=== PATIENT | female | born 1955 | race Caucasian/White ===

== ENCOUNTER 2018-09-13 10:03 | Outpatient (REF) | payer BC, SELFPAY ==
[2018-09-13 13:47] LABS: ALT 20 U/L (12-78); Anion Gap 7.6 mmol/L (3-11); BUN 17 mg/dL (7-18); CO2 29.4 mmol/L (21.0-32.0); CREATININE 0.68 mg/dL (0.55-1.02); Calcium 8.8 mg/dL (8.5-10.1); Chloride 105 mmol/L (98-107); Cholesterol 217 mg/dL (50-200); Glucose 89 mg/dL (70-100); HDL Cholesterol 52 mg/dL (40-60); LDL CHOLESTEROL 151 mg/dL (<100); Potassium 3.8 mmol/L (3.5-5.1); Sodium 142 mmol/L (136-145); Triglyceride 53 mg/dL (30-150)
== END 2018-09-13 10:23 ==
LOC: NCHCN 10:03
PROVIDERS: PCP Family Medicine; Visit Provider Family Medicine
DX: R73.03 Prediabetes (principal)
CPT/HCPCS: 80048; 80061; 83721; 83036; 84460

== ENCOUNTER 2018-10-11 01:02 | Outpatient (CLI) | payer BC, SELFPAY ==
--- NOTE | 2018-10-11 07:45 | DI.MAMMO_ITS ---
SYMPTOM/DIAGNOSIS: SCREENING, Z12.31 MAMMOGRAMS: Mammograms were interpreted according to the usual protocol including computer analysis with CAD system, tomosynthesis and C view imaging. Comparison is made with prior examinations. Breast density, Category B. No suspicious masses or microcalcifications are seen. There is no definite evidence of malignancy. IMPRESSION: Negative mammogram. Routine screening is recommended. Category 1. MQSA ASSESSMENT OF FINDINGS: Negative. Category 1. Patient will receive a letter notifying them of these results. BI-RADS category B. There are scattered areas of fibroglandular density.
== END 2018-10-11 01:22 ==
PROVIDERS: PCP Family Medicine; Visit Provider Family Medicine
DX: Z12.31 Encounter for screening mammogram for malignant neoplasm of breast (principal)
CPT/HCPCS: 77063; 77067

== ENCOUNTER 2019-09-26 13:45 | Outpatient (REF) | payer BC, SELFPAY ==
[2019-09-26 14:25] LABS: Glucose 93 mg/dL (74-106)
== END 2019-09-26 14:05 ==
LOC: NCHCN 13:45
PROVIDERS: PCP Family Medicine; Visit Provider Family Medicine
DX: R73.03 Prediabetes (principal)
CPT/HCPCS: 82947; 83036

== ENCOUNTER 2019-11-07 00:18 | Outpatient (CLI) | payer BC, SELFPAY ==
--- NOTE | 2019-11-07 | DI.MAMMO_ITS ---
EXAM: MG MAMMO SCREENING CLINICAL HISTORY: SCREENING, Z12.31 TECHNIQUE: Bilateral full field digital CC and MLO mammographic images were obtained with 3D tomosyn thesis and utilizing computer aided detection (CAD). COMPARISON: Available for comparison. FINDINGS: Masses/Architectural Distortion: None seen. Microcalcifications: No suspicious pleomorphic-type are seen. Skin Thickening/Nipple Retraction: None. IMPRESSION: 1. No significant interval change with no specific features of malignancy noted. 2. Unless there is more urgent need, screening mammography is recommended, as per [place] [employer] guidelines. BI-RADS Cat 1 - Negative Breast Density - Category B - Scattered areas of fibroglandular density A negative radiographic report should not delay biopsy if a dominant or clinically suspicious mass is present. Up to ten percent of cancers are not identified on mammography. A negative report may reinforce clinical impression. Adenosis and dense breasts may obscure an underlying neoplasm. False positive reports average 6 to 10%. Patient will receive a letter notifying them of these results.
== END 2019-11-07 00:38 ==
PROVIDERS: PCP Family Medicine; Visit Provider Family Medicine
DX: Z12.31 Encounter for screening mammogram for malignant neoplasm of breast (principal)
CPT/HCPCS: 77063; 77067

== ENCOUNTER 2020-06-12 12:00 | Outpatient (REF) | payer BC, SELFPAY ==
--- NOTE | 2020-06-12 11:25 | SKI_PTH ---
PATIENT: Irlanda Arias LOC: [facility] U#:[id number] AGE/SX: 64/F ROOM: RE06/12/[address]: Karen Albrecht : 1955 BED: DIS: 06/12/2020 SPEC #: [id number] RECD: 06/12/20 12:39 STATUS: PAMELA REQ #: [id number] RONN: 06/12/20 11:[address]: Karen Albrecht DEPT: Surgical Specimen RECD BY: Ana Whelan ENTERED: 06/12/20 12:40 SP TYPE: MAXI LAU DR: Sandra Vázquez Tissues: 1 - SKIN BIOPSY(SHAVE/PUNCH) Procedures: SKIN LEVEL 4 Comments: [id number]
== END 2020-06-12 12:20 ==
LOC: LBN 12:00
PROVIDERS: PCP Family Medicine; Visit Provider Surgery
DX: L82.0 Inflamed seborrheic keratosis (principal)
CPT/HCPCS: 88305

== ENCOUNTER 2020-06-17 07:57 | Day surgery (SDC) | payer BC, SELFPAY ==
--- NOTE | 2020-06-17 06:44 | W.COLOREPORT ---
Date of service: 06/17/20 Time of Service: : Colonoscopy Report Date of procedure: 06/17/20 Pre-op diagnosis general: Family history and screening Post-op diagnosis procedure note: same Procedure: Colonoscopy Surgeon: Aretha Whitt Anesthesia proc note operative: other (General/ASA 2/Sheron Aguila, JOSE LUIS) Estimated blood loss (mL): 0 Pathology: none sent Complications: None Disposition: same day Indications: The patient is here for Colonoscopy pre-op. Her last screening was in 2013, which was unremarkable. She reports a family history of colon cancer in her paternal uncle (30s) and maternal aunt (70s). She has not had any bowel habit changes. -Discussed colonoscopy bowel prep as well as the procedure. Discussed possible complications of the procedure to include bleeding, pain, perforation, missed small lesion/polyp, sore throat, aspiration and adverse reaction to the medications. Questions were answered to patient?s satisfaction. No guarantees were implied or given Prep: Miralax/Dulcolax Procedure Start Time: Procedure End Time: :45 Retraction Time: 8 minutes Findings: Normal colon Procedure Description: After informed consent was obtained the patient was taken to the procedure room and placed in a left decubitous position. Monitors were applied and a time out was done. The patients name, date of , procedure, allergies to medications and metal in their body was reviewed. The patient was then sedated. Once sedated and comfortable a rectal exam was done. External exam was normal. Internal exam revealed a normal sphincter tone and no palpable masses. The scope was then introduced and retro-flexed. No internal hemorrhoids were identified. The scope was then advanced to the cecum with some difficulty due to a tortuous colon. The ileocecal valve and appendiceal orifice were identified. The prep was good. The scope was then slowly retracted over 8 minutes back into the rectum. There were no polyps and no diverticula. The scope was removed and the patient was woken up and taken back to Same day surgery in stable condition. The patient tolerated the procedure well and there were no immediate complications. Follow up: The patient should follow up in 5 years unless they develop changes in bowel habits or other new gastrointestinal complaints.
--- NOTE | 2020-06-17 06:45 | W.PM.DSUDISC ---
Discharge Plan Disposition Patient Disposition: HOME Condition: Good Discharge Details Reason For Visit: Colonoscopy Attending Provider: Aretha Whitt Primary Care Provider: Sandra Vázquez Home Meds and New Rx's Prescriptions: Continued sertraline [Zoloft] 50 MG tablet 50 mg PO DAILY Qty: 1 RF: 0 cholecalciferol (vitamin D3) 1,000 UNIT tablet 1,000 unit PO DAILY RF: 0 krill oil 500 mg capsule PO RF: 0 ibuprofen 200 MG tablet 400 mg PO DAILY PRNRF: 0 calcium citrate-vitamin D3 1 EACH tablet 1 tab PO DAILY RF: 0 Discontinued polyethylene glycol 3350 17 gram/dose powder 238 g PO ONCE Qty: 238 RF: 0 bisacodyl [Dulcolax (bisacodyl)] 5 mg tablet,delayed release (DR/EC) 5 mg PO ONCE Qty: 4 RF: 0 No Action Elderberry 200 mg Capsule 200 mg PO RF: 0 Discharge Instructions Additional Instructions: Findings: Normal colonoscopy Follow up: 5 years due to your family history Please call if you develop: fevers >101.5 Nausea or Vomiting Abdominal pain that is not transient DAY SURGERY UNIT POST ENDOSCOPY INSTRUCTIONS 1. Because there will be medication in your system for the next 24 hours, you may feel a little sleepy. Your coordination will be affected. Therefore: a. Do not drive or operate dangerous equipment for 24 hours. b. Do not drink alcohol beverages for 24 hours (not even beer). c. Plan to go home and rest for the day. 2. Generally there are no restrictions on your activity after a day or so has gone by, but you may feel a bit fatigued for a few days. 3 After you arrive home you may have a light meal and return to a normal diet as you can tolerate it without feeling sick to your stomach. 4. After surgery, you may feel pain or discomfort. This should be only transient, but if it persists please contact your doctor. 5. If there are any questions regarding the findings of your procedure, please feel free to contact your doctor. 6. If you are unable to contact your doctor with a problem, contact the hospital at [phone]. 7. Continue all your regular medications unless directed otherwise. I understand the above instructions and have no questions. Signature of Patient or Responsible Adult Escort Date/Time Name of Responsible Adult Escort Signature of Nurse Date/Time Activity:: Activity as Tolerated Diet:: As Tolerated Discharge Orders Discharge Orders: Discharge Order (Routine); Ordered 06/17/20 Ordered By: Aretha Whitt
[2020-06-17 08:14] VITALS: BP 107/75; PULSE 82; RESP 16; TEMP 36; O2SAT 82
[2020-06-17] MEDS: Lactated Ringers 1,000 ML 80 ML IV (08:49)
[2020-06-17 10:32] VITALS: BP 107/56; PULSE 62; RESP 16; TEMP 36.2; O2SAT 99
== END 2020-06-17 10:55 | disposition home or self-care (01) ==
LOC: SUR 07:57
PROVIDERS: PCP Family Medicine; Visit Provider Surgery
PROC: 0DJD8ZZ Inspection of Lower Intestinal Tract, Via Natural or Artificial Opening Endoscopic (ICD-10-PCS; CPT 45378; principal; 2020-06-17 09:15)
DX: Z12.11 Encounter for screening for malignant neoplasm of colon (principal); Z80.0 Family history of malignant neoplasm of digestive organs; R73.03 Prediabetes
CPT/HCPCS: 45378; J2001

== ENCOUNTER 2020-10-02 09:11 | Outpatient (REF) | payer BC, SELFPAY ==
[2020-10-02 13:54] LABS: Glucose 92 mg/dL (74-106)
[2020-10-02 14:06] LABS: Hemoglobin A1C 5.7 % (<5.7)
== END 2020-10-02 09:12 | disposition home or self-care (01) ==
LOC: NCHCN 09:11
PROVIDERS: PCP Family Medicine; Visit Provider Family Medicine
DX: R73.03 Prediabetes (principal); Z80.0 Family history of malignant neoplasm of digestive organs
CPT/HCPCS: 82947; 83036

== ENCOUNTER 2021-01-22 02:31 | Outpatient (CLI) | payer MEDICARE, OTHER, SELFPAY ==
--- NOTE | 2021-01-22 | DI.MAMMO_ITS ---
Exam(s) MAMMO SCREENING EXAM: MAMMO SCREENING CLINICAL HISTORY: SCREENING, Z12.31. TECHNIQUE: Bilateral full field digital CC and MLO mammographic images were obtained with 3D tomosyn thesis and utilizing computer aided detection (CAD). COMPARISON: Prior mammograms dating back to 2011, the most recent being October 2019. FINDINGS: Asymmetric density anteriorly in the left breast posteriorly in the right breast, somewhat more promi nent than previous. Spot compression views recommended. No malignant-appearing microcalcification groups in either breast. There is no significant architectural distortion nor skin thickening-retraction. IMPRESSION: Asymmetric densities bilateral. Bilateral spot 3D views recommended. Possibly also breast ultrasoun d. BI-RADS Category 0 - Assessment Incomplete: Need additional imaging evaluation Breast Density - Category C - Heterogeneously dense Breast density Category C or D implies that the patient has dense breast tissue. Dense breast tissue can make it harder to find cancer on a mammogram. Dense breast tissue is also associated with an incr eased risk of breast cancer. This information about the result of the mammogram report was provided to the patient to raise their awareness. Use this report when you speak with the patient about their risks for breast cancer, which includes their family history. At that time, you may recommend additional screening tests (Ultrasoun d or MRI) as these tests may add significant information. A negative radiographic report should not delay biopsy if a dominant or clinically suspicious mass is present. Up to ten percent of cancers are not identified on mammography. A negative report may reinforce clinical impression. Adenosis and dense breasts may obscure an underlying neoplasm. False positive reports average 6 to 10%. Patient will receive a letter notifying them of these results.
--- NOTE | 2021-01-22 08:00 | DI.DEXA_ITS ---
Exam(s) XR DEXA BONE DENSITY W/WO PA EXAM: XR DEXA BONE DENSITY W/WO PA CLINICAL HISTORY: SCREENING FOR OSTEOPOROSIS, Z13.820 TECHNIQUE: Routine DEXA evaluation of the lumbar spine, hip, or forearm. COMPARISON: Prior DEXA scan 2010 FINDINGS: Performed on a GlucoTec unit. Lateral image: No compression fracture evident. Lumbar Spine total T-score: -1.5. Prior 2011 reading was -1.0 Hip total T-score:-1.6. Prior 2011 reading was -1.1 Independent reading at the femoral neck yields a T-score of -1.8 Forearm total T-score: -2.0 IMPRESSION: Bone mineral density measures in the osteopenia range. Fracture risk is moderate. Note: Any spine fracture indicates 5x risk for subsequent spine fracture and 2x risk for subsequent h ip fracture. World Health Organization criteria for BMD interpretation classify patients: Normal...... T- Score at or above -1.0 Osteopenic... T- Score between -1.0 and -2.5 Osteoporosis... T-Score at or below -2.5
== END 2021-01-22 02:51 ==
PROVIDERS: PCP Family Medicine; Visit Provider Family Medicine
DX: M85.88 Other specified disorders of bone density and structure, other site (principal); Z78.0 Asymptomatic menopausal state; Z12.31 Encounter for screening mammogram for malignant neoplasm of breast; R92.8 Other abnormal and inconclusive findings on diagnostic imaging of breast
CPT/HCPCS: 77063; 77067; 77080

== ENCOUNTER 2021-02-07 02:01 | Outpatient (CLI) | payer MEDICARE, OTHER, SELFPAY ==
--- NOTE | 2021-02-07 | DI.US_ITS ---
Exam(s) US BREAST RT LIMITED US BREAST LT LIMITED MG MAMMO SCREEN CALL BACK BI EXAM: MG MAMMO SCREEN CALL BACK BI and bilateral breast U/S limited CLINICAL HISTORY: F/U MAMMO, R92.8, ASYMMETRIC DENSITY ANTERIORLY LT BREAST, POSTERIORLY RT. TECHNIQUE: Craniocaudal and mediolateral oblique Full Field Digital Mammography views of the bilater al breast with Computer Aided Diagnosis followed by Tomosynthesis and bilateral breast ultrasound. COMPARISON: Comparison is made with prior examinations. FINDINGS: Mammography/Tomosynthesis: Masses/Architectural Distortion: No persistent asymmetric density is seen in the retroareolar region of the left breast on the additional views. There is persistent asymmetric breast tissue in the post erior right breast on the additional views, but no mass or areas of architectural distortion are seen . Microcalcifictions: No suspicious pleomorphic-type are seen. Skin Thickening/Nipple Retraction: None. Bilateral breast US: Echotexture: Normal appearance of the glandular tissue. There does appear to be dense breast tissue in the retroareolar region of the left breast and the upper half of the right breast sonographically. Shadowing: No suspicious foci. Cyst: None. Solid lesions: None seen. Ductal dilation: None. IMPRESSION: 1. No definite evidence for malignancy is noted. 2. A follow-up right mammogram is requested in 3 months for re-evaluation. 3. The findings were discussed with the patient on the date of the examination. BI-RADS Category 3 - Probably Benign Finding: Recommend follow-up imaging in 3 months Breast Density - Category C - Heterogeneously dense Breast density Category C or D implies that the patient has dense breast tissue. Dense breast tissue can make it harder to find cancer on a mammogram. Dense breast tissue is also associated with an incr eased risk of breast cancer. This information about the result of the mammogram report was provided to the patient to raise their awareness. Use this report when you speak with the patient about their risks for breast cancer, which includes their family history. At that time, you may recommend additional screening tests (Ultrasoun d or MRI) as these tests may add significant information. A negative radiographic report should not delay biopsy if a dominant or clinically suspicious mass is present. Up to ten percent of cancers are not identified on mammography. A negative report may reinforce clinical impression. Adenosis and dense breasts may obscure an underlying neoplasm. False positive reports average 6 to 10%. Patient will receive a letter notifying them of these results.
== END 2021-02-07 02:21 ==
PROVIDERS: PCP Family Medicine; Visit Provider Family Medicine
DX: Z12.31 Encounter for screening mammogram for malignant neoplasm of breast (principal); R92.8 Other abnormal and inconclusive findings on diagnostic imaging of breast; N64.59 Other signs and symptoms in breast
CPT/HCPCS: 76642; 77063; 77067

== ENCOUNTER 2021-05-21 01:31 | Outpatient (CLI) | payer MEDICARE, OTHER, SELFPAY ==
--- NOTE | 2021-05-21 | DI.MAMMO_ITS ---
Exam(s) MG MAMMO DIAGNOSTIC UNI US BREAST RT COMPLETE EXAM: MG MAMMO DIAGNOSTIC UNI-RIGHT CLINICAL HISTORY: DIAGNOSTIC, F.U ABNL MAMMO,3 MONTH FOLLOW UP,R92.8. TECHNIQUE: Unilateral spot mammographic images obtained with 3D tomosynthesisand utilizing computer aided detection (CAD). . Complete right breast Ultrasound was also performed, including all 4 quadrants, the retroareolar fang on, and the ipsilateral axilla. COMPARISON: Prior mammograms were reviewed. This additional imaging was performed due to findings described on the recent screening mammogram of 01/22/2021. Mammograms prior to that they reviewed a s were the diagnostic mammograms of 02/07/2021. FINDINGS: The asymmetric tissue posteriorly in the right breast appears unchangedand 3D spot imaging renders th is area less concerning. Ultrasound performed today reveals no evidence of solid or significant cystic lesions in all 4 quadra nts. Dense tissue in the retroareolar region is noted, as seen on the mammogram.. No significant ip silateral right axillary adenopathy. IMPRESSION: No radiographic evidence of malignancy in the right breast. No ultrasound evidence of malignancy in the right breast. Appropriate follow-up is to keep this patient on her yearly mammogram schedule, this implying that he r next bilateral mammogram would be in December 2021, with earlier imaging if a self detected breast shukla e is noted.. The patient was informed of these findings and recommendations prior to leaving the department today. BI-RADS Category 2 - Benign Findings Breast Density - Category B - Scattered areas of fibroglandular density Breast density Category C or D implies that the patient has dense breast tissue. Dense breast tissue can make it harder to find cancer on a mammogram. Dense breast tissue is also associated with an incr eased risk of breast cancer. This information about the result of the mammogram report was provided to the patient to raise their awareness. Use this report when you speak with the patient about their risks for breast cancer, which includes their family history. At that time, you may recommend additional screening tests (Ultrasoun d or MRI) as these tests may add significant information. A negative radiographic report should not delay biopsy if a dominant or clinically suspicious mass is present. Up to ten percent of cancers are not identified on mammography. A negative report may reinforce clinical impression. Adenosis and dense breasts may obscure an underlying neoplasm. False positive reports average 6 to 10%. Patient will receive a letter notifying them of these results.
== END 2021-05-21 01:51 ==
PROVIDERS: PCP Family Medicine; Visit Provider Family Medicine
DX: Z12.31 Encounter for screening mammogram for malignant neoplasm of breast (principal); R92.8 Other abnormal and inconclusive findings on diagnostic imaging of breast; N64.59 Other signs and symptoms in breast
CPT/HCPCS: 76642; 77061; 77065; G0279

== ENCOUNTER 2021-10-08 15:22 | Outpatient (REF) | payer MEDICARE, OTHER, SELFPAY ==
[2021-10-08 16:59] LABS: Hemoglobin A1C 5.9 % (<5.7)
[2021-10-08 17:01] LABS: Calculated LDL 170 mg/dL (<100); Cholesterol 255 mg/dL (<200); Glucose 87 mg/dL (74-106); HDL Cholesterol 67 mg/dL (40-60); Triglyceride 93 mg/dL (<150)
== END 2021-10-08 15:23 | disposition home or self-care (01) ==
LOC: NCHCN 15:22
PROVIDERS: PCP Family Medicine; Visit Provider Family Medicine
DX: R73.03 Prediabetes (principal); F32.9 Major depressive disorder, single episode, unspecified; L64.8 Other androgenic alopecia; Z79.899 Other long term (current) drug therapy
CPT/HCPCS: 80061; 82306; 82947; 83036

== ENCOUNTER → 2022-06-23 01:42 | Outpatient (CLI) | payer MEDICARE, SELFPAY ==
--- NOTE | 2022-06-23 07:38 | DI.MAMMO_ITS ---
Exam(s) MAMMO SCREENING EXAM: MAMMO SCREENING CLINICAL HISTORY: SCREENING, Z12.31 TECHNIQUE: Mammograms were interpreted according to the usual protocol including computer analysis w ith CAD system, tomosynthesis and C-view imaging. COMPARISON: FINDINGS: The breasts are heterogeneously dense with fairly symmetrical distribution of fibroglandular tissue. Please note that the MLO view of the right breast shows suboptimal positioning and suboptimal compre ssion, repeat MLO view of the right breast is recommended. IMPRESSION: Repeat MLO view of right breast is recommended, incomplete study. BI-RADS Category 0 - Assessment Incomplete: Need additional imaging evaluation Breast Density - Category C - Heterogeneously dense
== END ==
PROVIDERS: PCP Family Medicine; Visit Provider Family Medicine
DX: Z12.31 Encounter for screening mammogram for malignant neoplasm of breast (principal); R92.8 Other abnormal and inconclusive findings on diagnostic imaging of breast
CPT/HCPCS: 77063; 77067

== ENCOUNTER 2022-10-13 17:16 | Outpatient (REF) | payer MEDICARE, SELFPAY ==
[2022-10-13 17:44] LABS: Glucose 93 mg/dL (74-106)
[2022-10-13 17:59] LABS: Hemoglobin A1C 5.8 % (<5.7)
[2022-10-15 10:18] LABS: HIV-1/2 Ag & Ab Screen Negative (Negative)
== END 2022-10-13 17:17 | disposition home or self-care (01) ==
LOC: NCHCN 17:16
PROVIDERS: PCP Family Medicine; Visit Provider Family Medicine
DX: R73.03 Prediabetes (principal); Z00.00 Encounter for general adult medical examination without abnormal findings
CPT/HCPCS: 82947; 87389; 83036

== ENCOUNTER → 2023-06-28 02:31 | Outpatient (CLI) | payer MEDICARE, SELFPAY ==
--- NOTE | 2023-06-28 07:41 | DI.MAMMO_ITS ---
Exam(s) MAMMO SCREENING EXAM: MAMMO SCREENING CLINICAL HISTORY: SCREENING MAMMO FOR BREAST CANCER Z12.31 TECHNIQUE: Mammograms were interpreted according to the usual protocol including computer analysis w [employer] CAD system, tomosynthesis and C-view imaging. COMPARISON: 2013 through 2021 FINDINGS: The breasts are composed of heterogeneously dense fibroglandular densities, Breast Density category C . No suspicious masses or suspicious microcalcifications are seen. No skin thickening or abnormal axillary lymph nodes are seen. There has been no significant change from prior exams. IMPRESSION: BI-RADS Category 1, Negative mammogram. Yearly screening mammography is recommended. Breast Density Category C, heterogeneously Dense. The mammogram demonstrates the patient's breast tissue is dense. Dense breast tissue is very common a nd is not abnormal but dense breast tissue can make it harder to find cancer on a mammogram. Also, de nse breast tissue may increase breast cancer risk. This information about the result of the mammogram report was provided to the patient to raise their awareness. Use this report when you speak with the patient about their risks for breast cancer, which includes their family history. At that time, you may recommend additional screening tests (Ultrasound or MRI) as they might be useful based on their r isk. A negative radiographic report should not delay biopsy if a dominant or clinically suspicious mass is present. Up to ten percent of cancers are not identified on mammography. A negative report may reinforce clinical impression. Adenosis and dense breasts may obscure an underlying neoplasm. False positive reports average 6 to 10%.
== END ==
PROVIDERS: PCP Family Medicine; Visit Provider Family Medicine
DX: Z12.31 Encounter for screening mammogram for malignant neoplasm of breast (principal)
CPT/HCPCS: 77063; 77067

== ENCOUNTER 2023-09-20 08:55 | Emergency (ER) | payer MEDICARE, SELFPAY ==
[2023-09-20 09:11] VITALS: BP 127/61; PULSE 64; RESP 18; TEMP 36.3; O2SAT 100
--- NOTE | 2023-09-20 09:15 | RT.EKG_ITS ---
APPROVED REPORT Exam: Resting ECG Reason for Exam: dizzy Patient Location: E HR:60 bpm ECG Measurements Heart Rate 60 AXIS GA 125 P 54 QRSd 104 QRS 77 QT 393 T 63 QTc 392 Conclusion Sinus rhythm...normal P axis, V-rate 60- 99 sinus rhythm, normal axis, normal intervals, non ischemic
[2023-09-20 09:17] VITALS: RESP 16
--- NOTE | 2023-09-20 10:50 | ED.GENADUL_ITS ---
HPI General Mode of arrival: ambulatory . Date/Time Provider Initiated Documentation: 09/20/23 10:12 . Limitations to Documentation: no limitations . Information obtained by: patient and RN notes reviewed . History of Present Illness 67 year old F presents to the emergency department with the chief complaint of Lightheadedness, described as mild and moderate, Patient started experiencing this hour(s) (5) and it has been constant. No relieving factors improve symptom(s), Movement worsens symptoms . Patient notes no other symptoms.. Patient did receive the following treatments prior to arrival, none Related Data Home Medications Medication Instructions Recorded Confirmed sertraline 50 mg tablet (Zoloft) 50 mg PO DAILY #1 tab-cap 04/14/13 09/20/23 cholecalciferol (vitamin D3) 25 1,000 unit PO DAILY 10/16/13 09/20/23 mcg (1,000 unit) tablet calcium citrate 315 mg 1 tab PO DAILY 03/08/14 09/20/23 calcium-vitamin D3 6.25 mcg (250 unit) tablet ibuprofen 200 mg tablet 400 mg PO DAILY PRN 03/08/14 09/20/23 krill oil 500 mg capsule mg PO 10/20/19 06/12/20 elderberry fruit 200 mg capsule 200 mg PO 06/17/20 meclizine 25 mg tablet 25 - 50 mg (1 - 2 x 25 mg) PO TID 09/20/23 PRN dizziness #10 tabs Previous Rx's Medication Instructions Recorded meclizine 25 mg tablet 25 - 50 mg (1 - 2 x 25 mg) PO TID 09/20/23 PRN dizziness #10 tabs Allergies Allergy/AdvReac Type Severity Reaction Status Date / Time Penicillins Allergy Intermediate Large Unverified 09/20/23 09:10 local reaction from injections latex Allergy Mild Skin Unverified 09/20/23 09:10 Rash/Dermatitis venlafaxine [From Effexor] AdvReac Intermediate nausea Verified 09/20/23 09:10 macadamia nuts Allergy Intermediate Itchy Uncoded 09/20/23 09:10 throat General Stated Complaint: Dizzy/Sync TIFFANIE: 3 Review of Systems Constitutional Constitutional: Denies fever(s), Denies headache(s) and Denies malaise Eyes Eyes: Denies change in vision ENT Ears, Nose, Mouth, and Throat: Reports vertigo, Reports dizziness, Denies ear discharge, Reports otalgia and Denies headache(s) Cardiovascular Cardiovascular: Denies chest pain, Denies syncope, Denies rapid heart rate, Reports lightheadedness and Denies dyspnea Respiratory Respiratory: Denies dyspnea Gastrointestinal Gastrointestinal: Denies nausea and Denies vomiting Neurologic Neurologic: Reports as per HPI, Denies confusion, Reports vertigo, Reports dizziness, Denies syncope, Denies headache(s), Denies localized weakness, Denies seizure-like activity and Denies paresthesias Psychiatric Psychiatric: Denies confusion Exam Const General: cooperative, healthy appearing, no acute distress and well groomed Orientation: alert, awake and oriented x3 HENMT Head: normal to inspection Ears: hearing grossly normal bilaterally and TM's normal bilaterally Mouth: oral mucosae normal and moist mucous membranes Throat: posterior oropharynx normal Eyes Visual Taveras: normal visual taveras by confrontation Alignment and Position: alignment normal Periorbital: periorbital findings normal Eyelids: eyelids normal Sclera: sclerae normal Pupils: PERRL EOM: EOM intact bilaterally and nystagmus (Horizontal, with left lateral gaze) Neck Neck: normal visual inspection, full ROM and no meningeal signs Resp Effort & Inspection: normal respiratory effort and able to speak in complete sentences Auscultation: clear to auscultation bilaterally Cardio Rate: regular rate Rhythm: regular rhythm Heart Sounds: S1 normal and S2 normal Neuro General: patient alert, patient awake, patient oriented x3, gait normal, tone normal, moves all extremities, CN's II-XI intact bilaterally and not confused Cranial Nerves: nystagmus (Horizontal, with left lateral gaze) Cognition: normal cognition Speech: speech normal Motor: muscle tone normal throughout, strength 5/5 throughout, no pronator drift, no movement abnormalities noted and no fasciculations Sensory Exam: no sensory deficits noted Coordination: [id number] test normal, Romberg test normal, Does not sway with eyes open, rapid alternating movement UE normal and rapid alternating movement LE normal Course Vital Signs Vital signs: Vital Signs Temperature 36.3 C L 09/20/23 09:11 Pulse 64 09/20/23 09:11 Respiratory Rate 18 09/20/23 09:11 Blood Pressure 127/61 09/20/23 09:11 Pulse Oximetry 100 09/20/23 09:11 Temperature 36.3 C L 09/20/23 09:11 Pulse 64 01/22/24 09:11 Respiratory Rate 16 09/20/23 09:17 Respiratory Effort Normal, Non-Labored 09/20/23 09:17 Blood Pressure 127/61 09/20/23 09:11 Pulse Oximetry 100 09/20/23 09:11 Pain Level 5 09/20/23 09:11 Medical Decision Making Patient presenting to the emergency department for chief complaint of feeling lightheaded. She states that early this morning she woke up in bed with a pounding feeling in her left ear and what she describes as lightheaded nests every time she moves her head or changes positions. Patient denies any injury or trauma, chest pain, shortness of breath, or any other symptoms. Physical exam shows nystagmus with left lateral gaze otherwise neurological and HEENT exam is noncontributory and nonworrisome. HINTS exam is unremarkable. Ignacio maneuver was performed with high suspicion of left ear involvement. Patient tolerated procedure well and was monitored. Patient had significant resolution of symptoms after Ignacio maneuver and was able to ambulate through the department with again stated improvement. Given no other significant worrisome findings on physical exam or in history of episode do feel that patient can safely be discharged with close monitoring and follow-up precautions discussed. Did prescribe patient meclizine for use at home if symptoms return. After discussion of diagnosis and plan of care patient has no further needs, questions, or concerns and states clear understanding to return to the emergency department for any worsening symptoms. This documentation was generated using [employer] dictation system, please disregard any oddities of phrase or misspellings. Quality:SDOH Health Related Social Needs: No Data to Display PFSH All Active Problems (Updated 09/20/23 @ 10:53 by Popeye Arreaga NP) Benign paroxysmal positional vertigo of left ear (Acute) Normal colonoscopy (Acute) Family history of malignant neoplasm of colon (Acute) Atypical nevi (Acute) Medical History Vaginal atrophy Seasonal rhinitis History of cervical dysplasia Tinnitus Depression Prediabetes Alopecia postmenopausal adrongenetic Family history of colon cancer Surgical History Hx of appendectomy Left Wrist 09/2009 Hysterectomy, Laproscopic 2006 Social History Smoking/Tobacco Use Status: Former Tobacco Use Smoking risk assessment performed?: Yes Alcohol Intake: former Drug use: Never Housing: apartment Current gender identity: female Do you feel safe at home: Yes Do you feel safe in your relationship?: Yes Discharge Plan Disposition Patient Disposition: Home Discharge Details Clinical Impression: Benign paroxysmal positional vertigo of left ear Primary Care Provider: Sandra Vázquez ED Provider: Popeye Arreaga Home Meds and New Rx's Prescriptions: New meclizine 25 mg tablet 25 - 50 mg PO TID PRN (Reason: dizziness) Qty: 10 0RF Continued sertraline [Zoloft] 50 MG tablet 50 mg PO DAILY Qty: 1 cholecalciferol (vitamin D3) 1,000 UNIT tablet 1,000 unit PO DAILY krill oil 500 mg capsule PO ibuprofen 200 MG tablet 400 mg PO DAILY PRN calcium citrate-vitamin D3 1 EACH tablet 1 tab PO DAILY elderberry fruit 200 mg Capsule 200 mg PO Discharge Instructions Instructions: Benign Paroxysmal Positional Vertigo (ED) Additional Instructions: As discussed if you have any new or significant worsening symptoms return to the emergency department for reassessment. Otherwise be very mindful to prevent rapid movements of your head or position changes as this may worsen your symptoms. Take the prescribed medication as needed and if not improving over the next week please follow-up with your primary care provider for reassessment Referrals: Sandra Vázquez MD [Primary Care Provider] - 1 week (As needed for reassessment) Discharge Data Discharge Date/Time-TO BE ENTERED AT DEPARTURE: 09/20/23 10:59
== END 2023-09-20 10:59 | disposition home or self-care (01) ==
PROVIDERS: Emergency Provider Nurse Practitioner Family; PCP Family Medicine
DX: R00.2 Palpitations (principal); H81.12 Benign paroxysmal vertigo, left ear; Z87.891 Personal history of nicotine dependence
CPT/HCPCS: 93005; 99283; 93010

== ENCOUNTER 2023-11-17 13:16 | Outpatient (REF) | payer MEDICARE, SELFPAY ==
[2023-11-17 15:19] LABS: HCT 39.3 % (36.0-46.0); HGB 12.8 g/dL (11.2-15.7); MCH 29.6 pg (27.0-33.0); MCHC 32.6 % (32.0-36.0); MCV 91 fL (80-95); Platelet Count 182 10^3/uL (130-400); RBC 4.32 10^6/uL (3.93-5.22); RDW 13.1 % (11.7-14.6); RDW-SD 43.9 fL; WBC 4.33 10^3/uL (4.4-10.8)
[2023-11-17 15:30] LABS: ALT 62 U/L (14-59); AST 25 U/L (15-37); Albumin 3.9 g/dL (3.4-5.0); Alkaline Phosphatase 64 U/L (46-116); Anion Gap 7.6 mmol/L (3-11); BUN 17 mg/dL (7-18); Bilirubin, Total 0.4 mg/dL (0.2-1.0); CO2 29.4 mmol/L (21.0-32.0); CREATININE 0.7 mg/dL (0.55-1.02); Calcium 8.8 mg/dL (8.5-10.1); Chloride 106 mmol/L (98-107); Estimated GFR 94.15 (mL/min/1.73m2); Glucose 87 mg/dL (74-106); Potassium 4.3 mmol/L (3.5-5.1); Sodium 143 mmol/L (136-145); Total Protein 6.5 g/dL (6.4-8.2)
[2023-11-17 16:13] LABS: Hemoglobin A1C 5.9 % (<5.7)
== END 2023-11-17 13:17 | disposition home or self-care (01) ==
LOC: NCHCN 13:16
PROVIDERS: PCP Family Medicine; Referring Provider Family Medicine; Visit Provider Family Medicine
DX: R73.03 Prediabetes (principal)
CPT/HCPCS: 80053; 85027; 83036

== ENCOUNTER → 2023-12-27 04:19 | Outpatient (CLI) | payer MEDICARE, SELFPAY ==
--- NOTE | 2023-12-27 | DI.DEXA_ITS ---
Exam(s) XR DEXA BONE DENSITY W/WO PA EXAM: XR DEXA BONE DENSITY W/WO PA CLINICAL HISTORY: DISORDER WITH BONE DENSITY M85.88 TECHNIQUE: COMPARISON: CR XR DEXA BONE DENSITY W/WO PA from 01/22/2021 FINDINGS: Lateral Spine Image: Unremarkable. No compression deformities identified. Left hip: Total T-Score: -2.1. This compares to -1.6 on the prior examination. Total Z-Score: -0.7 T- and Z-scores: Findings are consistent with osteopenia. Lumbar Spine: Total T-Score: -1.4. This compares to -1.5 on the prior examination. Total Z-Score: 0.6 T- and Z-scores: Findings are consistent with osteopenia. Note is made of osteoporosis in the right forearm with a total T-score of -2.9. IMPRESSION: Osteopenia in the left hip and lumbar spine. Osteoporosis in the right forearm.
== END ==
PROVIDERS: PCP Family Medicine; Visit Provider Family Medicine
DX: M85.88 Other specified disorders of bone density and structure, other site (principal); Z13.820 Encounter for screening for osteoporosis
CPT/HCPCS: 77080

== ENCOUNTER 2024-04-03 03:25 | Outpatient (CLI) | payer MEDICARE, SELFPAY ==
[2024-04-03 13:12] LABS: ALT 30 U/L (14-59); AST 21 U/L (15-37); Albumin 3.9 g/dL (3.4-5.0); Alkaline Phosphatase 62 U/L (46-116); Bilirubin, Direct 0.1 mg/dL (0.0-0.2); Bilirubin, Total 0.24 mg/dL (0.2-1.0); Total Protein 6.8 g/dL (6.4-8.2)
== END 2024-04-03 03:26 | disposition home or self-care (01) ==
LOC: LBO 03:26
PROVIDERS: PCP Family Medicine; Visit Provider Family Medicine
DX: R94.5 Abnormal results of liver function studies (principal)
CPT/HCPCS: 36415; 80076

== ENCOUNTER 2024-07-03 01:42 | Outpatient (CLI) | payer MEDICARE, SELFPAY ==
--- NOTE | 2024-07-03 07:50 | DI.MAMMO_ITS ---
Exam(s) MAMMO SCREENING EXAM: MAMMO SCREENING CLINICAL HISTORY: Z12.39 Screening TECHNIQUE: Bilateral full field digital CC and MLO mammographic images were obtained with 3D tomosyn thesis and utilizing computer aided detection (CAD). COMPARISON: Available for comparison. FINDINGS: Masses/Architectural Distortion: There has been a subtle increase in visualization of an ovoid opacit y in the posterior medial left breast on the craniocaudad view. There are no areas of architectural distortion. Microcalcifications: No suspicious pleomorphic-type are seen. Skin Thickening/Nipple Retraction: None. IMPRESSION: 1. Small asymmetric density in the posterior central left breast on the craniocaudad view approximate ly 5 cm from the nipple. 2. This area should be further evaluated with a spot compression view. Limited left breast ultrasoun d may be indicated at that time. BI-RADS Category 0 - Incomplete: Need additional imaging evaluation Breast Density - Category B - Scattered areas of fibroglandular density Breast density category C or D implies that the patient has dense breast tissue. Dense breast tissue is very common and is not abnormal but dense breast tissue can make it harder to find cancer on a ma mmogram. Also, dense breast tissue may increase their breast cancer risk. This information about the result of the mammogram report was provided to the patient to raise their awareness. Use this report when you speak with the patient about their risks for breast cancer, which includes their family hist ory. At that time, you may recommend for more screening tests (Ultrasound or MRI) as they might be us eful based on their risk. A negative radiographic report should not delay biopsy if a dominant or clinically suspicious mass is present. Up to ten percent of cancers are not identified on mammography. A negative report may reinforce clinical impression. Adenosis and dense breasts may obscure an underlying neoplasm. False positive reports average 6 to 10%. Patient will receive a letter notifying them of these results.
== END 2024-07-03 02:02 ==
LOC: DI 01:42
PROVIDERS: PCP Family Medicine; Visit Provider Family Medicine
DX: Z12.31 Encounter for screening mammogram for malignant neoplasm of breast (principal)
CPT/HCPCS: 77063; 77067

== ENCOUNTER 2024-07-05 02:04 | Outpatient (CLI) | payer MEDICARE, SELFPAY ==
--- NOTE | 2024-07-05 | DI.MAMMO_ITS ---
Exam(s) MAMMO SCREEN CALL BACK UNI EXAM: MAMMO SCREEN CALL BACK UNI CLINICAL HISTORY: F/U ABNL MAMMO, R92.8,SMALL LT ASYMMETRIC DENSITY. TECHNIQUE: Craniocaudal and mediolateral oblique Full Field Digital Mammography views of the left br east with Computer Aided Diagnosis. COMPARISON: Comparison is made with prior examinations. FINDINGS: Mammography/Tomosynthesis: Masses/Architectural Distortion: The area of concern dissipates on the additional views. No persiste nt mass is seen. No area of architectural distortion is present. Microcalcifictions: No suspicious pleomorphic-type are seen. Skin Thickening/Nipple Retraction: None. IMPRESSION: 1. No evidence of malignancy is noted. 2. Unless there is more urgent need, follow-up screening mammography is recommended, as per [place] [employer] guidelines. 3. The findings were discussed with the patient on the date of the examination. BI-RADS Category 1 - Negative Breast Density - Category B - Scattered areas of fibroglandular density Breast density Category C or D implies that the patient has dense breast tissue. Dense breast tissue can make it harder to find cancer on a mammogram. Dense breast tissue is also associated with an incr eased risk of breast cancer. This information about the result of the mammogram report was provided to the patient to raise their awareness. Use this report when you speak with the patient about their risks for breast cancer, which includes their family history. At that time, you may recommend additional screening tests (Ultrasoun d or MRI) as these tests may add significant information. A negative radiographic report should not delay biopsy if a dominant or clinically suspicious mass is present. Up to ten percent of cancers are not identified on mammography. A negative report may reinforce clinical impression. Adenosis and dense breasts may obscure an underlying neoplasm. False positive reports average 6 to 10%. Patient will receive a letter notifying them of these results.
== END 2024-07-05 02:24 ==
LOC: DI 02:04
PROVIDERS: PCP Family Medicine; Visit Provider Family Medicine
DX: R92.8 Other abnormal and inconclusive findings on diagnostic imaging of breast (principal); R92.323 Mammographic fibroglandular density, bilateral breasts
CPT/HCPCS: 77063; 77067

== ENCOUNTER 2024-12-25 13:02 | Outpatient (REF) | payer MEDICARE, SELFPAY ==
[2024-12-25 16:12] LABS: Hemoglobin A1C 5.8 % (<5.7)
[2024-12-25 16:40] LABS: ALT 26 U/L (14-59); AST 19 U/L (15-37); Albumin 3.9 g/dL (3.4-5.0); Alkaline Phosphatase 71 U/L (46-116); Anion Gap 8.2 mmol/L (3-11); BUN 13 mg/dL (7-18); Bilirubin, Total 0.3 mg/dL (0.2-1.0); CO2 29.8 mmol/L (21.0-32.0); CREATININE 0.6 mg/dL (0.55-1.02); Calcium 8.7 mg/dL (8.5-10.1); Calculated LDL 147 mg/dL (<100); Chloride 108 mmol/L (98-107); Cholesterol 227 mg/dL (<200); Glucose 94 mg/dL (74-106); HDL Cholesterol 68 mg/dL (>or=50); Potassium 4.2 mmol/L (3.5-5.1); Sodium 146 mmol/L (136-145); Total Protein 6.6 g/dL (6.4-8.2); Triglyceride 60 mg/dL (<150); Vitamin D 25 Total 43 ng/mL (30-100)
== END 2024-12-25 13:03 | disposition home or self-care (01) ==
LOC: NCHCN 13:02
PROVIDERS: PCP Family Medicine; Visit Provider Family Medicine
DX: E78.5 Hyperlipidemia, unspecified (principal); R73.03 Prediabetes; M85.88 Other specified disorders of bone density and structure, other site
CPT/HCPCS: 80053; 80061; 82306; 83036

== ENCOUNTER 2025-01-01 12:54 | Outpatient (REF) | payer MEDICARE, SELFPAY ==
[2025-01-02 11:01] LABS: Measles IgG Antibody Positive (See Note)
== END 2025-01-01 12:55 | disposition home or self-care (01) ==
LOC: NCHCN 12:54
PROVIDERS: PCP Family Medicine; Visit Provider Family Medicine
DX: Z11.59 Encounter for screening for other viral diseases (principal)
CPT/HCPCS: 86765